=== PATIENT | female | born 2000 | race African-American/Black ===

== ENCOUNTER 2020-06-25 02:33 | Emergency (ER) | payer BC, OTHER ==
[2020-06-25] MEDS ORDERED: Ibuprofen 800 MG TAB ONE (03:02)
== END 2020-06-25 03:50 | disposition home or self-care (01) ==
LOC: ERS 02:33
DX: N83.209 Unspecified ovarian cyst, unspecified side (principal); F41.9 Anxiety disorder, unspecified; F17.290 Nicotine dependence, other tobacco product, uncomplicated; Z79.899 Other long term (current) drug therapy
CPT/HCPCS: 99283